=== PATIENT | female | born 1965 | race Caucasian/White ===

== ENCOUNTER 2017-07-06 20:54 | Emergency (ER) | payer OTHER ==
[~2017-07-06] VITALS: Ht 170.2 cm; Wt 86.2 kg
[2017-07-06 21:14] VITALS: BP 165/97; PULSE 73; RESP 18; TEMP 97.8; O2SAT 99
[2017-07-06] MEDS ORDERED: PROZ20CA11 PO (21:17)
[2017-07-06] MEDS ORDERED: TRIA1CAP6 PO (21:17)
[2017-07-06] MEDS ORDERED: ATEN100T PO (21:17)
[2017-07-06 22:45] LABS: AUTOMATED NEUTROPHIL # 8.7 TH/MM3 (1.8-7.7); BASOPHIL % 0.3 % (0.0-2.0); HEMO FLAGS DIFF FINAL; LYMPH % 9.1 % (9.0-44.0); LYMPHOCYTE # 0.9 TH/MM3 (1.0-4.8); MEAN CELL VOLUME 90.8 FL (80.0-100.0); MEAN CORPUSCULAR HEMOGLOBIN 30.4 PG (27.0-34.0); MEAN CORPUSCULAR HGB CONC 33.5 % (32.0-36.0); MONO % 4.5 % (0.0-8.0); NEUT % 86.1 % (16.0-70.0); PLATELET COUNT 471 TH/MM3 (150-450); RED BLOOD COUNT 4.08 MIL/MM3 (4.00-5.30); RED CELL DISTRIBUTION WIDTH 14.5 % (11.6-17.2); WHITE BLOOD COUNT 10.1 TH/MM3 (4.0-11.0)
[2017-07-06 23:02] LABS: ALT (GPT) 36 U/L (10-53); ANION GAP 6 MEQ/L (5-15); AST (GOT) 16 U/L (15-37); BICARBONATE 32.3 MEQ/L (21.0-32.0); BLOOD UREA NITROGEN 10 MG/DL (7-18); CHLORIDE 93 MEQ/L (98-107); GLOMERULAR FILTRATION RATE 77 ML/MIN (>89); SODIUM (NA) 131 MEQ/L (136-145)
[2017-07-06 23:04] LABS: ALKALINE PHOSPHATASE 58 U/L (45-117); TOTAL BILIRUBIN ADULT 0.2 MG/DL (0.2-1.0)
[2017-07-06] MEDS ORDERED: ACETAMINOPHEN 325 MG TAB PO ONE (23:45)
[2017-07-07 00:54] VITALS: BP 155/78; PULSE 84; RESP 18; O2SAT 98
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
[2017-07-07 05:44] VITALS: BP 154/82; PULSE 79; RESP 16; O2SAT 99
[2017-07-07 08:31] VITALS: BP 179/92; PULSE 61; RESP 20; O2SAT 99
[2017-07-07] MEDS: LORazepam 1 MG TAB PO ONE ×2 (11:45→11:51)
--- NOTE | 2017-07-07 14:05 | PD ---
Physical Exam Time Seen by Provider: 14:[address] Pino has evaluated the patient, looked Hyatt act, and cleared the patient for discharge. Data Data Last Documented VS Vital Signs Date Time Temp Pulse Resp B/P (MAP) Pulse Ox O2 Delivery O2 Flow Rate FiO2 07/07/17 08:31 61 20 179/92 (121) 99 Room Air 07/06/17 21:14 97.8 Orders Orders Complete Blood Count With Diff (07/06/17 21:41) Comprehensive Metabolic Panel (07/06/17 21:41) Psych Screen (07/06/17 21:41) Drug Screen, Random Urine (07/06/17 21:41) Acetaminophen (Tylenol) (07/06/17 23:45) Diet Regular Basic (07/07/17 Breakfast) Diet Regular Basic (07/07/17 Lunch) Lorazepam (Ativan) (07/07/17 11:45) Ed Discharge Order (07/07/17 14:16) Labs Laboratory Tests Test 07/06/17 22:30 07/07/17 08:28 White Blood Count 10.1 TH/MM3 Red Blood Count 4.08 MIL/MM3 Hemoglobin 12.4 GM/DL Hematocrit 37.0 % Mean Corpuscular Volume 90.8 FL Mean Corpuscular Hemoglobin 30.4 PG Mean Corpuscular Hemoglobin Concent 33.5 % Red Cell Distribution Width 14.5 % Platelet Count 471 TH/MM3 Mean Platelet Volume 6.6 FL Neutrophils (%) (Auto) 86.1 % Lymphocytes (%) (Auto) 9.1 % Monocytes (%) (Auto) 4.5 % Eosinophils (%) (Auto) 0.0 % Basophils (%) (Auto) 0.3 % Neutrophils # (Auto) 8.7 TH/MM3 Lymphocytes # (Auto) 0.9 TH/MM3 Monocytes # (Auto) 0.4 TH/MM3 Eosinophils # (Auto) 0.0 TH/MM3 Basophils # (Auto) 0.0 TH/MM3 CBC Comment DIFF FINAL Differential Comment Blood Urea Nitrogen 10 MG/DL Creatinine 0.78 MG/DL Random Glucose 122 MG/DL Total Protein 7.0 GM/DL Albumin 3.7 GM/DL Calcium Level 9.0 MG/DL Alkaline Phosphatase 58 U/L Aspartate Amino Transf (AST/SGOT) 16 U/L Alanine Aminotransferase (ALT/SGPT) 36 U/L Total Bilirubin 0.2 MG/DL Sodium Level 131 MEQ/L Potassium Level 4.0 MEQ/L Chloride Level 93 MEQ/L Carbon Dioxide Level 32.3 MEQ/L Anion Gap 6 MEQ/L Estimat Glomerular Filtration Rate 77 ML/MIN Urine Opiates Screen NEG Urine Barbiturates Screen NEG Urine Amphetamines Screen NEG Urine Benzodiazepines Screen NEG Urine Cocaine Screen NEG Urine Cannabinoids Screen NEG MDM Supervised Visit with [facility]: No Narrative Course Dr. Pino has evaluated the patient, looked Hyatt act, and cleared the patient for discharge. Patient contracts safety. Denies suicidal or homicidal ideations. Patient will be provided community resource packet to /[facility] for follow-up. Has friends and family for support. Patient was medically cleared by alternate provider prior to psych screening. Patient has been evaluated by psychiatry and and is now cleared for discharge. Diagnosis Primary Impression: Adjustment disorder with mixed disturbance of emotions and conduct Referrals: [facility] (Out patient) [facility] Primary Care Physician Psychiatrist Patient Instructions: General Instructions, Mood Disorders (ED) Additional Instruction: Contract safety to your self and others Follow-up with psychiatry Follow-up with primary care provider Follow-up with Jose Roberto Lucia Return to the emergency department immediately with worsening of symptoms Med/Other Pt SpecificInfo: No Change to Meds, No Meds Exist/No RX given Disposition: 01 DISCHARGE HOME Condition: Stable Kate Zimmerman Jul 07, 2017 14:05
--- NOTE | 2017-07-07 14:06 | PD ---
History of Present Illness Chief Complaint: Psychiatric Symptoms Time Seen by Provider: 14:00 Travel History International Travel<30 Days: No Contact w/Intl Traveler<30days: No Known affected area: No Legal Status Legal Status: Hyatt Act Hyatt Act Signed By: Óscar Hyatt Act Comment: 07/06/2017 08:20 PM OFC. Christiana BROWN #[id number] [id number] History of Present Illness: 52-year-old female Olena acted for threatening suicide/suicidal behavior. Patient continues to show remorse regarding her statements and actions. She denies any suicidal or homicidal ideation, plan or intent. She exhibits no psychotic symptoms or cognitive deficits. She is verbally moriah for safety and she is competent to do so. 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 She states her last appointment with Dr. Hsu was last week. She denies any inpatient treatment. Patient does not show significant objective clinical signs of bipolar disorder at this time. History of Inpatient Treatment: No Guns or firearms in home: No Social History Hx Alcohol Use: No Hx Tobacco Use: No Hx Substance Use: No Hx of Substance Use Treatment: No Allergies-Medications (Allergen,Severity, Reaction): Coded Allergies: Penicillins (Verified Allergy, Unknown, UNK, 07/07/17) Reported Meds & Prescriptions Reported Meds & Active Scripts Active Reported Prozac (Fluoxetine HCl) 20 Mg Cap 20 Mg PO DAILY Dyrenium (Triamterene) 50 Mg Cap 50 Mg PO DAILY Atenolol 100 Mg Tab 100 Mg PO DAILY Review of Systems Except as stated in HPI: all other systems reviewed are Neg Mental Status Examination Appearance: Appropriate Consciousness: Alert Orientation: x4 Motor Activity: Normal gait Speech: Unremarkable Language: Adequate Fund of Knowledge: Adequate Attention and Concentration: Adequate Memory: Unremarkable Mood: Appropriate Affect: Appropriate Thought Process & Associations: Intact Thought Content: Appropriate Hallucination Type: None Delusion Type: None Suicidal Ideation: No Suicidal Plan: No Suicidal Intention: No Homicidal Ideation: No Homicidal Plan: No Homicidal Intention: No Insight: Adequate Judgment: Adequate MDM Medical Decision Making Medical Record Reviewed: Yes Assessment/Plan Patient interviewed at bedside. Medical record reviewed. Case discussed with nurse Quezada. Patient does not meet Hyatt act criteria and she does not meet criteria for involuntary inpatient psychiatric hospitalization. She wants to go home and return to her outpatient clinicians. This physician agrees. Orders Orders Complete Blood Count With Diff (07/06/17 21:41) Comprehensive Metabolic Panel (07/06/17 21:41) Psych Screen (07/06/17 21:41) Drug Screen, Random Urine (07/06/17 21:41) Acetaminophen (Tylenol) (07/06/17 23:45) Diet Regular Basic (07/07/17 Breakfast) Diet Regular Basic (07/07/17 Lunch) Lorazepam (Ativan) (07/07/17 11:45) Results Vital Signs Date Time Temp Pulse Resp B/P (MAP) Pulse Ox O2 Delivery O2 Flow Rate FiO2 07/07/17 08:31 61 20 179/92 (121) 99 Room Air 07/07/17 05:44 79 16 154/82 (106) 99 Room Air 07/07/17 00:54 84 18 155/78 (103) 98 Room Air 07/06/17 21:14 97.8 73 18 165/97 (119) 99 Laboratory Tests Test 07/06/17 22:30 07/07/17 08:28 White Blood Count 10.1 Red Blood Count 4.08 Hemoglobin 12.4 Hematocrit 37.0 Mean Corpuscular Volume 90.8 Mean Corpuscular Hemoglobin 30.4 Mean Corpuscular Hemoglobin Concent 33.5 Red Cell Distribution Width 14.5 Platelet Count 471 Mean Platelet Volume 6.6 Neutrophils (%) (Auto) 86.1 Lymphocytes (%) (Auto) 9.1 Monocytes (%) (Auto) 4.5 Eosinophils (%) (Auto) 0.0 Basophils (%) (Auto) 0.3 Neutrophils # (Auto) 8.7 Lymphocytes # (Auto) 0.9 Monocytes # (Auto) 0.4 Eosinophils # (Auto) 0.0 Basophils # (Auto) 0.0 CBC Comment DIFF FINAL Differential Comment Blood Urea Nitrogen 10 Creatinine 0.78 Random Glucose 122 Total Protein 7.0 Albumin 3.7 Calcium Level 9.0 Alkaline Phosphatase 58 Aspartate Amino Transf (AST/SGOT) 16 Alanine Aminotransferase (ALT/SGPT) 36 Total Bilirubin 0.2 Sodium Level 131 Potassium Level 4.0 Chloride Level 93 Carbon Dioxide Level 32.3 Anion Gap 6 Estimat Glomerular Filtration Rate 77 Urine Opiates Screen NEG Urine Barbiturates Screen NEG Urine Amphetamines Screen NEG Urine Benzodiazepines Screen NEG Urine Cocaine Screen NEG Urine Cannabinoids Screen NEG Diagnosis Primary Impression: Adjustment disorder with mixed disturbance of emotions and conduct Wilbert Pino MD Jul 07, 2017 14:06
== END 2017-07-07 14:45 | disposition home or self-care (01) ==
LOC: NEDAMB 20:54 → NEPD 07-07 14:45
DX: F43.25 Adjustment disorder with mixed disturbance of emotions and conduct (principal); I10 Essential (primary) hypertension; Z79.899 Other long term (current) drug therapy
CPT/HCPCS: 80053; 80307; 85025; 99284

== ENCOUNTER 2018-07-20 20:32 | Inpatient (IN) ==
[2018-07-20] MEDS ORDERED: Sod Chloride 0.9% Inj 1,000 ML IV.SIG SCH (21:30)
[2018-07-20] MEDS ORDERED: Ciprofloxacin 400 MG/200 ML 400 MG/200 ML PIGGYBACK IV.SIG ONE (21:44)
[2018-07-20] MEDS ORDERED: Tetanus/Diphtheria Toxoid Adult Vaccine Inj 0.5 ML Vial IM ONE (21:44)
[2018-07-20] MEDS ORDERED: Clindamycin 900 mg/NS Premix 900 MG/50 ML PIGGYBACK IV.SIG ONE (21:51)
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
[2018-07-20 22:27] LABS: Baso % (Auto) 0.2 % (0.0-2.0); Hematocrit 39.7 % (35.0-46.0); Hemoglobin 13.7 gm/dL (11.6-15.3); Lymph # (Auto) 1.9 th/mm3 (1.0-4.8); Lymph % (Auto) 14.8 % (9.0-44.0); Mean Corpuscular HGB Conc 34.5 % (32.0-36.0); Mean Corpuscular Hemoglobin 31.8 pg (27.0-34.0); Mean Platelet Volume 6.8 fL (7.0-11.0); Mono # (Auto) 0.9 th/mm3 (0.0-0.9); Mono % (Auto) 7.4 % (0.0-8.0); Neut # (Auto) 9.8 th/mm3 (1.8-7.7); Neut % (Auto) 77.6 % (16.0-70.0); Platelet Count 460 th/mm3 (150-450); Red Blood Count 4.32 mil/mm3 (4.00-5.30); White Blood Count 12.6 th/mm3 (4.0-11.0)
--- NOTE | 2018-07-20 22:31 | XR ---
EXAM DATE: 07/20/2018 10:08 PM EST AGE/SEX: 53 years / Female INDICATIONS: Pain, swelling and redness left 1st finger. Dog bite CLINICAL DATA: This is the patient's initial encounter. Patient reports that signs and symptoms have been present for 2 days and indicates a pain score of 6/10. MEDICAL/SURGICAL HISTORY: None. None. COMPARISON: No prior exams available for comparison. FINDINGS: Bony structures are intact and in normal alignment. Joints are intact without dislocation or signifi cant arthropathy. Osseous density is normal. Soft tissues are unremarkable. No radiopaque foreign bodies seen. CONCLUSION: Negative examination Electronically signed by: Rome Julian MD Board Certified Radiologist 07/20/2018 10:29 PM EST
[2018-07-20 22:49] LABS: Amphetamine Screen,Urine Neg (Neg); Barbiturate Screen,Urine Neg (Neg); Cannabinoid Screen,Urine Neg (Neg); Cocaine Screen,Urine Neg (Neg)
[2018-07-20 22:51] LABS: Bilirubin,Urine Negative (Negative); Clarity,Urine Hazy (Clear); Color,Urine Yellow (Yellw/Straw); Glucose,Urine (UA) Negative (Negative); Leukocyte Esterase,Urine Negative (Negative); Mucus,Urine Few /lpf (Occasional); Nitrite,Urine Negative (Negative); Opiate Screen,Urine Neg (Neg); Specific Gravity,Urine 1.019 (1.002-1.035)
[2018-07-20 22:56] LABS: Alanine Aminotransferase 35 U/L (10-53); Albumin 4.2 g/dL (3.4-5.0); Alkaline Phosphatase 93 U/L (45-117); Anion Gap 7 meq/L (5-15); Aspartate Aminotransferase 28 U/L (15-37); Blood Urea Nitrogen 16 mg/dL (7-18); Calcium 9.7 mg/dL (8.5-10.1); Carbon Dioxide 30.6 meq/L (21.0-32.0); Chloride 96 meq/L (98-107); Glomerular Filtration Rate 72 mL/min (>89); Glucose,Random 145 mg/dL (74-106); Magnesium 2.3 mg/dL (1.5-2.5); Sodium 134 meq/L (136-145); Total Protein 8.6 g/dL (6.4-8.2)
[2018-07-20 23:22] LABS: Potassium 2.8 meq/L (3.5-5.1)
[2018-07-21] MEDS ORDERED: Haloperidol Inj 5 MG/ML Ampul IV.PUSH ONE (01:29)
[2018-07-21] MEDS ORDERED: Haloperidol Inj 5 MG/ML Ampul IM ONE (01:41)
[2018-07-21] MEDS: Ciprofloxacin 500 MG Tablet PO SCH ×2 (08:19→21:58)
[2018-07-21] MEDS ORDERED: Aluminum/Magnesium/Simethacone Susp 30 ML UDC PO PRN (11:17)
[2018-07-21] MEDS ORDERED: Bisacodyl 10 MG Supp RECTAL PRN (11:17)
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
[2018-07-21] MEDS: QUEtiapine 25 MG Tablet PO SCH ×2 (14:16→21:58)
[2018-07-21] MEDS ORDERED: Triamterene/HCTZ 37.5 MG/25 MG Tablet PO ONE (15:24)
[2018-07-21] MEDS ORDERED: amLODIPine 10 MG Tablet PO ONE (15:24)
[2018-07-21] MEDS: Senna/Docusate Sodium 8.6/50 MG Tablet PO SCH (21:58)
[2018-07-22 07:21] LABS: Anion Gap 8 meq/L (5-15); Blood Urea Nitrogen 9 mg/dL (7-18); Carbon Dioxide 29.8 meq/L (21.0-32.0); Chloride 98 meq/L (98-107); Glomerular Filtration Rate Greater Than 89 mL/min (>89); Glucose,Random 108 mg/dL (74-106); Potassium 3.2 meq/L (3.5-5.1); Sodium 136 meq/L (136-145)
[2018-07-22 07:22] LABS: Cholesterol 164 mg/dL (120-200); Triglycerides 115 mg/dL (42-150)
[2018-07-22 07:25] LABS: Chol/HDL Ratio 2.59 Ratio; HDL Cholesterol 63.2 mg/dL (40.0-60.0); LDL Cholesterol,Calculated 78 mg/dL (0-99)
[2018-07-22] MEDS: Ciprofloxacin 500 MG Tablet PO SCH ×2 (08:23→20:32)
[2018-07-22] MEDS: QUEtiapine 25 MG Tablet PO SCH ×2 (08:23→20:35)
[2018-07-22] MEDS: Senna/Docusate Sodium 8.6/50 MG Tablet PO SCH ×2 (08:25→20:32)
[2018-07-22 09:27] LABS: Hemoglobin A1c 5.1 % (4.3-6.0)
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
[2018-07-22] MEDS: Triamterene/HCTZ 37.5 MG/25 MG Tablet PO SCH (16:34)
[2018-07-23] MEDS: QUEtiapine 25 MG Tablet PO SCH (08:53)
[2018-07-23] MEDS: Triamterene/HCTZ 37.5 MG/25 MG Tablet PO SCH (08:53)
[2018-07-23] MEDS: Senna/Docusate Sodium 8.6/50 MG Tablet PO SCH ×2 (08:53→20:27)
[2018-07-23] MEDS: Ciprofloxacin 500 MG Tablet PO SCH ×2 (08:53→20:26)
[2018-07-23] MEDS: FLUoxetine 20 MG Capsule PO SCH (10:08)
--- NOTE | 2018-07-23 11:02 | P.PNPSY ---
Subjective Chief Complaint: Follow-up for veto symptoms Remarks: Reviewed electronic record and discussed with nursing staff. Called to 2700 unit. Patient with rapid speech, racing thoughts , unable to concentrate and endorses insomnia. States that the Seroquel is giving her RLS. She has been on Prozac and Gabapentin from her outpatient Psychiatrist for a long time and feels that this works for her. She has been on Prozac 20 mg and Gabapentin 1200mg. Discussed with patient that she has symptoms of bipolar and needs something to address these symptoms in addition to the mood stabilizer. She endorses that her experience with the Prozac is that it takes away her anger and irritability and does not induce veto. Will start on Prozac 20mg, Gabapentin 300mg tid and Abilify 5mg ( I had her sign to be able to titrate up to 10 mg.). Added Atarax prn for her extreme anxiety. She has been transferred to 2600 and she is currently pacing the hallway. Review of Systems All other systems reviewed negative except as stated in HPI Mental Status Examination Appearance: Appropriate Consciousness: Alert Orientation: x4 Motor Activity: Normal gait Speech: Pressured, Rapid Language: Adequate Fund of Knowledge: Adequate Attention and Concentration: Adequate Memory: Unremarkable Mood: Anxious, Irritable Affect: Appropriate Thought Process & Associations: Circumstantial Thought Content: Racing thoughts Hallucination Type: None Delusion Type: Bizarre, Paranoid Suicidal Ideation: No Suicidal Plan: No Suicidal Intention: No Homicidal Ideation: No Homicidal Plan: No Homicidal Intention: No Insight: Poor Judgment: Poor Assessment and Plan - Assessment (1) Bipolar disorder, manic, moderate Code(s): F31.12 - Bipolar disorder, current episode manic without psychotic features, moderate Status: Acute - Plan Plan: 07/23/18 Seroquel produced RLS. Seroquel discontinued. Patient reports that her outpatient psychiatrist has her on Prozac 20 mg and Gabapentin 1,200 mg. She states that without the Prozac she is irritable, aggressive and accusatory. Will start on Prozac 20 mg, Gabapentin 300 tid and Abilify 5mg qhs ( she has signed the form to be able to titrate up to 10 gm). She is pacing the hallways , rapid speech, unable to concentrate, added atarax prn. 07/21/2018: On my evaluation today the patient presents with irritability, rapid to pressured speech, flight of ideas, poor attention span, agitation and hostility in the ER, delusional and paranoid thinking. As per Hy[place] act, the patient has been reportedly acting very bizarre, aggressive, paranoid in the neighborhood, making accusation without factual evidence which is out of character for her. She has a psychiatric history of bipolar disorder, she denies psychiatric hospitalizations, denies suicidal attempts, she has been treated with Wellbutrin 100 mg by PCP. At this point she is not a full reliable person. She has an elevated risk of danger to self and others, and also risk of self neglecting behavior, she needs psychiatric admission for stabilization and safety. I will discontinue Wellbutrin, since this medication is not the ideal medication to treat bipolar disorder. Will start Seroquel 25 bid for mood stabilization. consider also starting Depakote. Transfer to 2700. Low potassium treated in the ER with potassium chloride 40 mg and then 60 mg p.o. Will order EKG. 07/22/2018: Fair response to initial treatment and observation on the psychiatric unit, the patient is no longer expressing active symptoms of psychosis but her thoughts remain disorganized and characterized by flight of ideas and pressured speech. The patient acknowledges the need for treatment to slow her mind down but with her disorganized thinking and lack of insight she is not appropriate for a voluntary admission at this time therefore the second opinion will be placed on the chart to concur with the first opinion that the patient meets criteria for involuntary admission under the Hyatt act. Increase Seroquel to 50 mg twice a day for treatment of veto and psychosis. Justification for Continued Inpatient Stay: Patient relocated to 2600 due to her increased veto and unable to handle the noise and other patients on the 2700 unit. Arrives on 2600 pacing and anxious. Patient is currently manic and will start medications. Discharging patient or moving her to a less restrictive environment may result in her decompensation.
[2018-07-23] MEDS: Gabapentin 300 MG Capsule PO SCH ×2 (12:04→17:31)
[2018-07-23] MEDS: traZODone 50 MG Tablet PO SCH (20:26)
[2018-07-23] MEDS: ARIPiprazole 5 MG Tablet PO SCH (20:26)
[2018-07-24] MEDS: Senna/Docusate Sodium 8.6/50 MG Tablet PO SCH ×2 (09:10→20:48)
[2018-07-24] MEDS: Gabapentin 300 MG Capsule PO SCH (09:10)
[2018-07-24] MEDS: Ciprofloxacin 500 MG Tablet PO SCH ×2 (09:10→20:48)
[2018-07-24] MEDS: Triamterene/HCTZ 37.5 MG/25 MG Tablet PO SCH (09:10)
[2018-07-24] MEDS: FLUoxetine 20 MG Capsule PO SCH (09:11)
[2018-07-24] MEDS: Gabapentin 400 MG Capsule PO SCH ×2 (12:58→17:27)
--- NOTE | 2018-07-24 14:22 | P.PNPSY ---
Subjective Chief Complaint: Follow-up for veto symptoms Remarks: Patient seen for follow-up, chart reviewed, patient discussed with nursing staff ; we reviewed the patient's mood, thoughts, and behaviors from overnight and this morning. Nursing reports the patient slept approximately 6 hours overnight and continues to present with what is described as rambling speech. Patient is also preoccupied with her roommate conflict. Patient was seen sitting in the day room acting appropriately within the milieu. Her speech is pressured and she does tend to ramble. She was focused on concerns about her dog who she considers her children. She reports wanting to be discharged and she would stay with a friend however she has not been able to contact these friends and she realizes that it would be unsafe for her to attempt discharge back to her roommates home. The patient continues to describe her recent manic behavior as consistent with past episodes of her getting "flustered and anxious and that I started sound like a lunatic." Patient reports gabapentin has been very helpful for her in the past 2 keep her anxiety and mood stabilize as well as her restless legs but she is usually taking 400 mg 3 times a day and requests an increase. Patient denies any worsening restlessness since her Seroquel was changed to Abilify and the Prozac added over the weekend. Mental Status Examination Appearance: Appropriate Consciousness: Alert Orientation: x4 Motor Activity: Normal gait Speech: Pressured, Rapid Language: Adequate Fund of Knowledge: Adequate Attention and Concentration: Adequate Memory: Unremarkable Mood: Anxious, Irritable Affect: Appropriate (Restricted and dysphoric appearing) Thought Process & Associations: Circumstantial Thought Content: Racing thoughts Hallucination Type: None Delusion Type: None Suicidal Ideation: No Suicidal Plan: No Suicidal Intention: No Homicidal Ideation: No Homicidal Plan: No Homicidal Intention: No Insight: Poor Judgment: Poor Assessment and Plan - Assessment (1) Bipolar disorder Code(s): F31.9 - Bipolar disorder, unspecified Status: Acute - Plan Plan: 07/23/18 Seroquel produced RLS. Seroquel discontinued. Patient reports that her outpatient psychiatrist has her on Prozac 20 mg and Gabapentin 1,200 mg. She states that without the Prozac she is irritable, aggressive and accusatory. Will start on Prozac 20 mg, Gabapentin 300 tid and Abilify 5mg qhs ( she has signed the form to be able to titrate up to 10 gm). She is pacing the hallways , rapid speech, unable to concentrate, added atarax prn. 07/21/2018: On my evaluation today the patient presents with irritability, rapid to pressured speech, flight of ideas, poor attention span, agitation and hostility in the ER, delusional and paranoid thinking. As per [place] act, the patient has been reportedly acting very bizarre, aggressive, paranoid in the neighborhood, making accusation without factual evidence which is out of character for her. She has a psychiatric history of bipolar disorder, she denies psychiatric hospitalizations, denies suicidal attempts, she has been treated with Wellbutrin 100 mg by PCP. At this point she is not a full reliable person. She has an elevated risk of danger to self and others, and also risk of self neglecting behavior, she needs psychiatric admission for stabilization and safety. I will discontinue Wellbutrin, since this medication is not the ideal medication to treat bipolar disorder. Will start Seroquel 25 bid for mood stabilization. consider also starting Depakote. Transfer to 2700. Low potassium treated in the ER with potassium chloride 40 mg and then 60 mg p.o. Will order EKG. 07/22/2018: Fair response to initial treatment and observation on the psychiatric unit, the patient is no longer expressing active symptoms of psychosis but her thoughts remain disorganized and characterized by flight of ideas and pressured speech. The patient acknowledges the need for treatment to slow her mind down but with her disorganized thinking and lack of insight she is not appropriate for a voluntary admission at this time therefore the second opinion will be placed on the chart to concur with the first opinion that the patient meets criteria for involuntary admission under the Hyatt act. Increase Seroquel to 50 mg twice a day for treatment of veto and psychosis. 07/24/2018: Fair response to treatment, the patient's thoughts are becoming more organized and she is starting to put together logical plans for her discharge. She remains a high risk for self-harm by self neglect due to her residual symptoms of veto to include her flight of ideas and impulsive judgment. Continue inpatient observation and stabilization. Continue Abilify 5 mg/day for treatment of bipolar veto with psychosis. Continue Prozac 20 mg a day for her chronic treatment of anxiety. Increase gabapentin to 400 mg 3 times a day for treatment of her chronic restless legs. Continue Atarax 25 mg every 6 hours as needed for anxiety. Continue trazodone 50 mg at bedtime as needed for insomnia. Discharge planning: Patient may need help getting phone numbers from her contact list on her phone. Patient is not safe to discharge back to her home due to recent conflict with roommate therefore alternative fci will need to be pursued. Anticipate discharge later this week. Justification for Continued Inpatient Stay: Patient remains an elevated risk for self-harm by self neglect and will require further inpatient stabilization and preparation of a safe discharge plan. Moving patient to a less restrictive environment at this time may result in decompensation.
[2018-07-24] MEDS: ARIPiprazole 5 MG Tablet PO SCH (20:48)
[2018-07-24] MEDS: traZODone 50 MG Tablet PO SCH (20:48)
[2018-07-25] MEDS: Ciprofloxacin 500 MG Tablet PO SCH (08:38)
[2018-07-25] MEDS: Senna/Docusate Sodium 8.6/50 MG Tablet PO SCH (08:38)
[2018-07-25] MEDS: Gabapentin 400 MG Capsule PO SCH (08:38)
[2018-07-25] MEDS: Triamterene/HCTZ 37.5 MG/25 MG Tablet PO SCH (08:38)
[2018-07-25] MEDS: FLUoxetine 20 MG Capsule PO SCH (08:39)
[2018-07-25] MEDS ORDERED: Acetaminophen 325 MG Tablet PO PRN (09:00)
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
== END 2018-07-25 11:10 | disposition home or self-care (01) ==
LOC: NEPD 20:32 → NEDA 07-21 10:47 → H270 07-21 19:03 → H260 07-23 09:51
PROVIDERS: ADMIT Psychiatry & Neurology Psychiatry; ATTEND Psychiatry & Neurology Psychiatry